=== PATIENT | male | born 1960 | race Caucasian/White ===

== ENCOUNTER 2023-10-17 09:58 | Day surgery (SDC) | payer BC ==
[~2023-10-17] VITALS: Ht 172.7 cm; Wt 94.3 kg
[~2023-10-17 09:58] MED LIST: ASPI81TA26 PO; ATOR80TA59 PO; INSU100I48 SQ; LISI10TA22 PO; METF10004 PO; METO1TAB32 PO; NOVOINJ3 SQ; SEMA0.257 SQ
[2023-10-17] MEDS ORDERED: LR 1,000 ML IV SCH ×2 (11:00→13:55)
[2023-10-17] MEDS ORDERED: LIDOCAINE 2% 100MG/5ML SDV (FOR ANES.) As Ordered ONE (11:04)
[2023-10-17] MEDS ORDERED: ONDANSETRON 4MG 2ML VIAL As Ordered ONE (11:04)
[2023-10-17] MEDS ORDERED: propofoL 200 MG/20 ML VIAL As Ordered ONE (11:04)
[2023-10-17] MEDS ORDERED: fentaNYL 100 MCG/2 ML INJECTION As Ordered ONE (11:04)
[2023-10-17] MEDS ORDERED: KETOROLAC 60MG 2ML VIAL As Ordered ONE (11:04)
[2023-10-17] MEDS: ceFAZolin 2 GM/D5W 50 ML IV BAG As Ordered ONE (11:55)
[2023-10-17] MEDS ORDERED: ACETAMINOPHEN 1000MG 100ML IV BAG As Ordered ONE (11:55)
[2023-10-17] MEDS ORDERED: ePHEDrine SULFATE 25 MG/5 ML(5MG/ML) SYRINGE As Ordered ONE (12:11)
[2023-10-17] MEDS: BACITRACIN OINTMENT 30GM TUBE As Ordered ONE (13:25)
[2023-10-17] MEDS ORDERED: OXYC1TAB23 PO (13:43)
[2023-10-17] MEDS ORDERED: ONDANSETRON 4MG 2ML VIAL IV PRN (13:55)
[2023-10-17] MEDS ORDERED: HYDROMORPHONE HCL 0.5 MG/ 0.5 ML SYRINGE IV PRN (13:55)
[2023-10-17] MEDS ORDERED: oxyCODONE 5MG TAB PO PRN (13:55)
[2023-10-17] MEDS ORDERED: fentaNYL 100 MCG/2 ML INJECTION IV PRN (13:55)
[2023-10-17 14:15] VITALS: BP 144/79; TEMP 97.1; O2SAT 97
== END 2023-10-17 14:46 | disposition home or self-care (01) ==
LOC: M SDC 09:58
PROVIDERS: ATTEND Orthopaedic Surgery Hand Surgery
DX: S62.327A Displaced fracture of shaft of fifth metacarpal bone, left hand, initial encounter for closed fracture (principal); X58.XXXA Exposure to other specified factors, initial encounter; Y93.9 Activity, unspecified; E11.9 Type 2 diabetes mellitus without complications; I10 Essential (primary) hypertension; E78.00 Pure hypercholesterolemia, unspecified; Z79.82 Long term (current) use of aspirin; Z79.899 Other long term (current) drug therapy; Z79.4 Long term (current) use of insulin; Z79.84 Long term (current) use of oral hypoglycemic drugs; Z79.85 Long-term (current) use of injectable non-insulin antidiabetic drugs
CPT/HCPCS: 26615; 76000; C1713; J0131; J0665; J0690; J1885; J2405; J3010

== ENCOUNTER → 2023-10-25 | Outpatient (CLI) | payer BC ==
[~2023-10-25] MED LIST changes: +OXYC1TAB23 PO
== END ==
LOC: M SOG 07:59
PROVIDERS: ATTEND Physician Assistant
DX: S62.327A Displaced fracture of shaft of fifth metacarpal bone, left hand, initial encounter for closed fracture (principal); W18.30XA Fall on same level, unspecified, initial encounter; Y92.009 Unspecified place in unspecified non-institutional (private) residence as the place of occurrence of the external cause

== ENCOUNTER → 2023-10-29 | Day surgery (SDC) | payer BC ==
[~2023-10-29] VITALS: Ht 172.7 cm; Wt 95.4 kg
[~2023-10-29] MED LIST changes: +ACETAMINOPHEN 1000MG 100ML IV BAG As Ordered ONE; +HYDROMORPHONE HCL 0.5 MG/ 0.5 ML SYRINGE IV PRN; +KETOROLAC 60MG 2ML VIAL As Ordered ONE; +LIDOCAINE 2% 100MG/5ML SDV (FOR ANES.) As Ordered ONE; +LR 1,000 ML IV SCH; +MIDAZOLAM INJ 2MG/2ML VIAL As Ordered ONE; +ONDANSETRON 4MG 2ML VIAL As Ordered ONE; +ONDANSETRON 4MG 2ML VIAL IV PRN; +PERC5TAB12 PO; +fentaNYL 100 MCG/2 ML INJECTION As Ordered ONE; +fentaNYL 100 MCG/2 ML INJECTION IV PRN; +oxyCODONE 5MG TAB PO PRN; +propofoL 200 MG/20 ML VIAL As Ordered ONE
[2023-10-29] MEDS: LR 1,000 ML IV SCH (07:22)
[2023-10-29] MEDS: INSULIN LISPRO (NovoLOG) PER UNIT SC PRN ×2 (07:23→09:33)
[2023-10-29] MEDS: ceFAZolin 2 GM/D5W 50 ML IV BAG As Ordered ONE (07:53)
[2023-10-29] MEDS: BACITRACIN OINTMENT 30GM TUBE As Ordered ONE (08:52)
[2023-10-29 10:07] VITALS: BP 142/86; TEMP 98.2; O2SAT 98
== END | disposition home or self-care (01) ==
LOC: M SDC 06:20
PROVIDERS: ATTEND Orthopaedic Surgery Hand Surgery
DX: T84.290A Other mechanical complication of internal fixation device of bones of hand and fingers, initial encounter (principal); Y79.2 Prosthetic and other implants, materials and accessory orthopedic devices associated with adverse incidents; S62.327D Displaced fracture of shaft of fifth metacarpal bone, left hand, subsequent encounter for fracture with routine healing; X58.XXXD Exposure to other specified factors, subsequent encounter; I10 Essential (primary) hypertension; E78.5 Hyperlipidemia, unspecified; E11.9 Type 2 diabetes mellitus without complications; Z79.899 Other long term (current) drug therapy; Z79.82 Long term (current) use of aspirin; Z79.4 Long term (current) use of insulin; Z79.84 Long term (current) use of oral hypoglycemic drugs
CPT/HCPCS: 26615; 76000; C1713; J0131; J0665; J0690; J1100; J1815; J1885; J2250; J2405; J3010

== ENCOUNTER → 2023-11-06 | Outpatient (CLI) | payer BC ==
[~2023-11-06] MED LIST changes: -ACETAMINOPHEN 1000MG 100ML IV BAG As Ordered ONE; -HYDROMORPHONE HCL 0.5 MG/ 0.5 ML SYRINGE IV PRN; -KETOROLAC 60MG 2ML VIAL As Ordered ONE; -LIDOCAINE 2% 100MG/5ML SDV (FOR ANES.) As Ordered ONE; -LR 1,000 ML IV SCH; -MIDAZOLAM INJ 2MG/2ML VIAL As Ordered ONE; -ONDANSETRON 4MG 2ML VIAL As Ordered ONE; -ONDANSETRON 4MG 2ML VIAL IV PRN; -fentaNYL 100 MCG/2 ML INJECTION As Ordered ONE; -fentaNYL 100 MCG/2 ML INJECTION IV PRN; -oxyCODONE 5MG TAB PO PRN; -propofoL 200 MG/20 ML VIAL As Ordered ONE
== END ==
LOC: M SOG 15:27
PROVIDERS: ATTEND Physician Assistant
DX: S62.327A Displaced fracture of shaft of fifth metacarpal bone, left hand, initial encounter for closed fracture (principal); Y93.9 Activity, unspecified; Y92.9 Unspecified place or not applicable

== ENCOUNTER → 2023-11-27 | Outpatient (CLI) | payer BC | LOC: M SOG 11:39 | PROVIDERS: ATTEND Physician Assistant | DX: S62.327A Displaced fracture of shaft of fifth metacarpal bone, left hand, initial encounter for closed fracture (principal); Y93.9 Activity, unspecified; Y92.9 Unspecified place or not applicable ==

== ENCOUNTER → 2023-12-11 | Outpatient (CLI) | payer BC | LOC: M SOG 07:54 | PROVIDERS: ATTEND Physician Assistant | DX: S62.327A Displaced fracture of shaft of fifth metacarpal bone, left hand, initial encounter for closed fracture (principal); W18.30XA Fall on same level, unspecified, initial encounter; Y92.009 Unspecified place in unspecified non-institutional (private) residence as the place of occurrence of the external cause ==

== ENCOUNTER → 2024-01-08 | Outpatient (CLI) | payer BC | LOC: M SOG 07:20 | PROVIDERS: ATTEND Physician Assistant | DX: S62.327A Displaced fracture of shaft of fifth metacarpal bone, left hand, initial encounter for closed fracture (principal); W18.30XA Fall on same level, unspecified, initial encounter; Y92.009 Unspecified place in unspecified non-institutional (private) residence as the place of occurrence of the external cause ==